=== PATIENT | female | born 1990 | race Caucasian/White ===

== ENCOUNTER 2024-08-20 20:35 | Emergency (ER) | payer BC ==
[~2024-08-20] VITALS: Ht 172.7 cm; Wt 68.0 kg
[2024-08-20 20:36] VITALS: PULSE 78; O2SAT 97
[2024-08-20 20:44] VITALS: BP 126/86; RESP 18; TEMP 36.8; O2SAT 98
[2024-08-20 22:30] LABS: BASOPHILS % 0.4 % (0.0-2.0); EOSINOPHILS % 1.2 % (0.0-5.0); HEMATOCRIT. 39.7 % (36.0-48.0); HEMOGLOBIN. 13.9 g/dL (12.0-16.0); LYMPHOCYTES % 25.6 % (20.0-50.0); MEAN CORPUSCULAR HEMOGLOBIN 29.6 pg (28.0-32.0); MEAN CORPUSCULAR HGB CONC 34.9 g/dL (31.0-37.0); MEAN CORPUSCULAR VOLUME 84.8 fL (81.0-99.0); MONOCYTES % 4.8 % (2.0-8.0); PLATELET 325 x1000/uL (130-400); RED BLOOD CELL COUNT 4.68 mill/uL (4.2-5.4); RED CELL DISTRIBUTION WIDTH 12.2 % (11.6-14.6); WHITE BLOOD COUNT 13.1 x1000/uL (4.5-11.0)
[2024-08-20 22:33] LABS: CHLORIDE 104 mEq/L (98-107); POTASSIUM 3.7 mEq/L (3.5-5.1); SODIUM 139 mEq/L (136-145)
[2024-08-20 22:34] LABS: CARBON DIOXIDE 25 mEq/L (21-32)
[2024-08-20 22:35] LABS: CALCIUM 9.3 mg/dL (8.7-10.4)
[2024-08-20 22:39] LABS: CREATININE 0.8 mg/dL (0.6-1.0); GLUCOSE 93 mg/dL (70-105); UREA NITROGEN BLOOD 12 mg/dL (9-23)
[2024-08-20 22:55] LABS: HCG SCREEN NEGATIVE
[2024-08-21] MEDS: IOHEXOL-350 100 ML BOTTLE ONE (00:23)
[2024-08-21] MEDS ORDERED: IBUP-2029 MT (01:55)
== END 2024-08-21 03:07 | disposition home or self-care (01) ==
LOC: ER 20:35
DX: S10.93XA Contusion of unspecified part of neck, initial encounter (principal); Z98.890 Other specified postprocedural states; X58.XXXA Exposure to other specified factors, initial encounter; Y93.65 Activity, lacrosse and field hockey; Y92.328 Other athletic field as the place of occurrence of the external cause; Y99.8 Other external cause status
CPT/HCPCS: 99285; 70498; 80048; 84703; 85025; 36415; Q9967